=== PATIENT | male | born 1955 | race Caucasian/White ===

== ENCOUNTER → 2017-05-20 | Outpatient (CLI) | payer OTHER | END | disposition home or self-care (01) | LOC: CFH 09:30 | PROVIDERS: ATTEND Internal Medicine Nephrology | DX: N50.3 Cyst of epididymis (principal); I12.9 Hypertensive chronic kidney disease with stage 1 through stage 4 chronic kidney disease, or unspecified chronic kidney disease; N18.3 Chronic kidney disease, stage 3 (moderate); D89.9 Disorder involving the immune mechanism, unspecified; E78.5 Hyperlipidemia, unspecified; D75.1 Secondary polycythemia; M10.9 Gout, unspecified | CPT/HCPCS: 76870 ==

== ENCOUNTER 2019-06-19 16:48 | Emergency (ER) | payer OTHER ==
[~2019-06-19] VITALS: Ht 188 cm; Wt 86.2 kg
[~2019-06-19 16:48] MED LIST: AMLO10TA4 PO; ASPI-496 PO; CHOL2000 PO; LISI-167 PO; METO25TA35 PO; MYCO500T3 PO; PRAV40TA2 PO; SODI650T PO; TACR0.5C4 PO
--- NOTE | 2019-06-19 17:15 | NUR ---
FIRST CONTACT. PT PRESENTS WITH C/O CHEST PAIN (02/21) AND SOB. PT DENIES ANY CARDIAC HX. 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 PULSE OX. VSS. AT BEDSIDE.
[2019-06-19] MEDS ORDERED: ONDANSETRON 2MG/ML, 2ML ONE (18:25)
[2019-06-19] MEDS ORDERED: MORPHINE SULFATE 4 MG/ML, 1ML ONE (18:26)
[2019-06-19] MEDS ORDERED: MORPHINE SULFATE 4 MG/ML, 1ML IVPush PRN (18:30)
[2019-06-19] MEDS ORDERED: SODIUM CHLORIDE 0.9% 1,000ML IVBOLUS ONE (18:30)
[2019-06-19] MEDS ORDERED: ONDANSETRON 2MG/ML, 2ML IVPush ONE (18:30)
[2019-06-19 18:31] LABS: BASOPHILS # (AUTO) 0.04 x10^3/uL (0-0.1); BASOPHILS % (AUTO) 1 % (0-1); EOSINOPHILS # (AUTO) 0.11 x10^3/uL (0-0.4); EOSINOPHILS % (AUTO) 2 % (1-7); LYMPHOCYTES # (AUTO) 1.25 x10^3/uL (1-3.4); LYMPHOCYTES % (AUTO) 20 % (22-44); MD NO; MEAN CORPUSCULAR HEMOGLOBIN 32.1 pg (27.5-34.5); MEAN CORPUSCULAR HGB CONC 33.9 g/dL (33.2-36.2); MEAN CORPUSCULAR VOLUME 94.9 fL (81-97); MEAN PLATELET VOLUME 8.4 fL (7.4-10.4); MONOCYTES # (AUTO) 0.51 x10^3/uL (0.2-0.8); MONOCYTES % (AUTO) 8 % (2-9); NEUTROPHILS # (AUTO) 4.29 x10^3/uL (1.8-6.8); NEUTROPHILS % (AUTO) 69 % (42-75); PLATELET COUNT 230 x10^3/uL (130-400); RED BLOOD COUNT 5.32 x10^6/uL (4.38-5.82); RED CELL DISTRIBUTION WIDTH 13.9 % (9.4-14.8)
[2019-06-19 18:38] LABS: ALBUMIN 3.9 g/dL (3.4-5.0); ANION GAP 10 mmol/L (5-15); CALCIUM 9.6 mg/dL (8.5-10.1); CHLORIDE 110 mmol/L (98-107)
[2019-06-19 18:44] LABS: ALANINE AMINOTRANSFERASE 19 U/L (12-78); ALKALINE PHOSPHATASE 70 U/L (45-117); BILIRUBIN,TOTAL 0.8 mg/dL (0.2-1.0); CREATININE 1.18 mg/dL (0.7-1.3); TOTAL PROTEIN 7.5 g/dL (6.4-8.2); TROPONIN I < 0.015 ng/mL (0.000-0.045)
--- NOTE | 2019-06-19 18:44 | NUR ---
PT MEDICATED FOR PAIN AND NAUSEA. VSS. RIGHT ARM NOT BEING USED DUE TO FISTULA.
[2019-06-19 19:28] LABS: MICROSCOPIC INDICATED
--- NOTE | 2019-06-19 19:30 | NUR ---
Pt resting on mae, aox 4, at bedside, bedside report recieved and plan of care discussed. Pt reports improved comfort, debneis nausea or pain at this time, fluids infusing, US complete, wiaitng on results.
[2019-06-19 20:19] LABS: CULTURE INDICATED? NO
[2019-06-19 20:28] VITALS: BP 119/77
--- NOTE | 2019-06-19 20:30 | NUR ---
Vitals updated, pt restign w/ eyes closed, no apparent distress noted, at bedside. waiting for results.
== END 2019-06-19 21:42 | disposition home or self-care (01) ==
LOC: ED 20:01
DX: R10.13 Epigastric pain (principal); I10 Essential (primary) hypertension; E78.5 Hyperlipidemia, unspecified; R11.2 Nausea with vomiting, unspecified; Z87.891 Personal history of nicotine dependence
CPT/HCPCS: 36415; 71045; 76700; 80053; 81001; 83690; 84484; 85025; 93005; 96361; 96374; 96375; 99284; J2270; J2405; J7030